=== PATIENT | female | born 1985 | race Hispanic/Latino ===

== ENCOUNTER 2021-01-20 20:14 | Emergency (ER) | payer OTHER ==
[~2021-01-20] VITALS: Ht 160 cm; Wt 104.3 kg
[2021-01-20 20:22] VITALS: BP 110/76
[2021-01-20] MEDS ORDERED: ALBUTEROL INHALER 90MCG/INH IH PRN (20:30)
[2021-01-20] MEDS ORDERED: CEFTRIAXONE 1G VIAL IM ONE (20:30)
[2021-01-20] MEDS ORDERED: ACETAMINOPHEN WITH CODEINE 1 TAB TAB PO ONE (20:30)
[2021-01-20] MEDS ORDERED: AZITHROMYCIN 250 MG TABLET PO ONE (20:30)
[2021-01-20] MEDS ORDERED: LIDOCAINE HCL-MPF 1% 2ML VIAL ONE (20:50)
[2021-01-20] MEDS ORDERED: D-ME1POW16 PO (21:40)
[2021-01-20] MEDS ORDERED: DOXY100C2 PO (21:40)
[2021-01-20] MEDS ORDERED: ALBUHFA IH (21:40)
[2021-01-20 22:10] VITALS: BP 129/76
== END 2021-01-20 22:11 | disposition home or self-care (01) ==
LOC: EDH 20:14
DX: J40 Bronchitis, not specified as acute or chronic (principal); Z20.822 Contact with and (suspected) exposure to COVID-19; Z79.899 Other long term (current) drug therapy
CPT/HCPCS: 71045; 87635; 87804 ×2; 87880; 96372; 99284; C9803; J0696; J3490

== ENCOUNTER 2022-07-25 15:55 | Emergency (ER) | payer OTHER ==
[~2022-07-25] VITALS: Ht 160 cm; Wt 106.1 kg
[~2022-07-25 15:55] MED LIST: ALBUHFA IH; D-ME1POW16 PO; DOXY100C5 PO
[2022-07-25] MEDS ORDERED: PHEN-846 PO (17:28)
[2022-07-25 17:45] VITALS: BP 125/72
== END 2022-07-25 17:45 | disposition home or self-care (01) ==
LOC: EDH 15:55
DX: N39.0 Urinary tract infection, site not specified (principal)
CPT/HCPCS: 99282

== ENCOUNTER 2023-01-09 10:57 | Emergency (ER) | payer BC, MEDICAID ==
[~2023-01-09] VITALS: Ht 160 cm; Wt 108.9 kg
[~2023-01-09 10:57] MED LIST changes: +PHEN-846 PO
[2023-01-09 11:30] LABS: BASOPHILS % (AUTO) 0.6 % (0.0-5.0); EOSINOPHILS % (AUTO) 1.9 % (0.0-8.0); HEMATOCRIT 39.5 % (36-48); LYMPHOCYTES % (AUTO) 32.2 % (21.0-51.0); MEAN CORPUSCULAR HEMOGLOBIN 29.8 pg (27.0-33.0); MEAN CORPUSCULAR HGB CONC 32.4 g/dL (32.0-36.0); MEAN CORPUSCULAR VOLUME 91.9 fL (79-99); MONOCYTES % (AUTO) 8.6 % (3.0-13.0); NEUTROPHILS % (AUTO) 56.4 % (40.0-77.0); PLATELET COUNT (AUTO) 297 K/uL (130-400); RED CELL DISTRIBUTION WIDTH 12.8 % (11.0-15.5); WHITE BLOOD COUNT (AUTO) 7.8 K/uL (4.8-10.8)
[2023-01-09 11:36] LABS: APPEARANCE,URINE CLEAR (CLEAR); BILIRUBIN,URINE NEGATIVE (NEGATIVE); COLOR,URINE COLORLESS (YELLOW); GLUCOSE, URINE (UA) NEGATIVE (NEGATIVE); KETONES,URINE NEGATIVE (NEGATIVE); LEUKOCYTE ESTERASE ,URINE NEGATIVE Leu/uL (NEGATIVE); NITRATE,URINE NEGATIVE (NEGATIVE); OCCULT BLOOD,URINE NEGATIVE (NEGATIVE); PROTEIN,URINE NEGATIVE (NEGATIVE); UROBILINOGEN,URINE 0.2 mg/dL (0.2-1.0)
[2023-01-09 11:39] LABS: HCG,QUALITATIVE URINE NEGATIVE (NEGATIVE)
[2023-01-09 11:40] LABS: POTASSIUM 4.4 mmol/L (3.5-5.1)
[2023-01-09 11:44] LABS: ALBUMIN 3.6 g/dL (3.5-5.0); TOTAL PROTEIN, SERUM 7.6 g/dL (6.0-8.3)
[2023-01-09] MEDS ORDERED: 0.9%NACL 1000ML 1,000 ML IV ONE (12:00)
[2023-01-09] MEDS ORDERED: PANTOPRAZOLE 40 MG/VIAL IVP ONE (12:00)
[2023-01-09] MEDS ORDERED: ONDANSETRON 4MG INJ IVP ONE (12:00)
[2023-01-09] MEDS ORDERED: MORPHINE 4 MG SYG IVP ONE (12:00)
[2023-01-09] MEDS ORDERED: IOHEXOL-350 75 ML VIAL IV ONE (13:18)
[2023-01-09 13:29] LABS: HCG,QUANTITATIVE 0 mIU/mL (0-5); LIPASE 141 U/L (114-286)
[2023-01-09] MEDS ORDERED: FAMO20TA8 PO (14:02)
[2023-01-09] MEDS ORDERED: IBUP-2070 PO (14:02)
[2023-01-09 14:21] VITALS: BP 121/71; PULSE 50; RESP 16
== END 2023-01-09 14:22 | disposition home or self-care (01) ==
LOC: EDH 10:57
DX: K29.70 Gastritis, unspecified, without bleeding (principal)
CPT/HCPCS: 99284; 74177; 96374; 96375; 96361; 80053; 84702; 83690 ×2; 85025; 81003; 81025; 36415; J7030; J2405; J2270; C9113; Q9967

== ENCOUNTER 2024-04-02 14:06 | Emergency (ER) | payer BC, MEDICAID ==
[~2024-04-02] VITALS: Ht 160 cm; Wt 113.4 kg
[~2024-04-02 14:06] MED LIST changes: +FAMO20TA8 PO; +IBUP-2070 PO
[2024-04-02 15:39] LABS: BASOPHILS # (AUTO) 0.04 K/uL (0.00-0.20); BASOPHILS % (AUTO) 0.4 % (0.0-5.0); EOSINOPHILS # (AUTO) 0.14 K/uL (0.00-0.70); EOSINOPHILS % (AUTO) 1.4 % (0.0-8.0); HEMATOCRIT 36.6 % (36-48); IMMATURE GRANULOCYTE ABSOLUTE 0.05 K/uL (0-1); LYMPHOCYTES # (AUTO) 3.2 K/uL (1.0-4.8); LYMPHOCYTES % (AUTO) 33.1 % (21.0-51.0); MEAN CORPUSCULAR HEMOGLOBIN 29.4 pg (27.0-33.0); MEAN CORPUSCULAR HGB CONC 32.5 g/dL (32.0-36.0); MEAN CORPUSCULAR VOLUME 90.4 fL (79-99); MONOCYTES # (AUTO) 0.7 K/uL (0.1-1.0); MONOCYTES % (AUTO) 7.4 % (3.0-13.0); NEUTROPHILS # (AUTO) 5.6 K/uL (1.8-7.7); NEUTROPHILS % (AUTO) 57.2 % (40.0-77.0); PLATELET COUNT (AUTO) 276 K/uL (130-400); RED BLOOD CELL COUNT(AUTO) 4.05 MIL/uL (4.00-5.50); RED CELL DISTRIBUTION WIDTH 12.5 % (11.0-15.5); WHITE BLOOD COUNT (AUTO) 9.8 K/uL (4.8-10.8)
[2024-04-02 15:59] LABS: CREATININE 0.9 mg/dL (0.5-1.0)
[2024-04-02 16:08] LABS: ALBUMIN 3.6 g/dL (3.5-5.0); BILIRUBIN,TOTAL 0.2 mg/dL (0.2-1.0); TOTAL PROTEIN, SERUM 7.8 g/dL (6.0-8.3)
[2024-04-02] MEDS: PANTOPrazole 40 MG/VIAL IVP ONE (18:24)
[2024-04-02] MEDS: LACTATED RINGERS 1000ML 1,000 ML IV ONE (18:24)
[2024-04-02] MEDS: ondanSETRON 4MG INJ IVP ONE (18:24)
[2024-04-02] MEDS ORDERED: PANT40TA55 PO (18:27)
[2024-04-02] MEDS ORDERED: ONDA-243 PO (18:27)
[2024-04-02] MEDS: DICYCLOMINE HCL 10 MG/5 ML ML PO ONE (20:22)
[2024-04-02] MEDS: LIDOCAINE HCL 2% VISCOUS 15 ML UDCUP PO ONE (20:22)
[2024-04-02] MEDS: MAG/ALUM/SIMETH 30 ML UDCUP PO ONE (20:23)
[2024-04-02 23:00] VITALS: BP 110/63; PULSE 70; RESP 18; TEMP 97.8; O2SAT 98
== END 2024-04-02 23:06 | disposition home or self-care (01) ==
LOC: EDH 14:06
DX: K27.9 Peptic ulcer, site unspecified, unspecified as acute or chronic, without hemorrhage or perforation (principal); E66.01 Morbid (severe) obesity due to excess calories; Z68.41 Body mass index [BMI] 40.0-44.9, adult
CPT/HCPCS: 99284; 96374; 71045; 96361; 96375; 82550; 84484; 80053; 83690; 85025; 36415; 93005; J7120; J2405; J2470

== ENCOUNTER 2024-08-16 19:58 | Emergency (ER) | payer SELFPAY ==
[~2024-08-16] VITALS: Ht 160 cm; Wt 110.2 kg
[~2024-08-16 19:58] MED LIST changes: -ALBUHFA IH; +CALC500T13 PO; -D-ME1POW16 PO; -DOXY100C5 PO; -FAMO20TA8 PO; -IBUP-2070 PO; -PHEN-846 PO
--- NOTE | 2024-08-16 20:00 | NUR ---
DELAY DUUE TO REGISTRATION PAPERWORK BEING EXPLAINED
--- NOTE | 2024-08-16 20:09 | NUR ---
UA CUP PROVIDED
--- NOTE | 2024-08-16 20:10 | NUR ---
[facility]INNER OR LOC
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
[2024-08-16] MEDS: ibuPROFEN 600 MG TABLET PO ONE (20:59)
[2024-08-16 21:02] VITALS: BP 124/75; PULSE 85; RESP 16; TEMP 97.8; O2SAT 99
== END 2024-08-16 21:04 | disposition home or self-care (01) ==
LOC: EEVIPCON 19:58 → EDH 19:58
DX: S30.1XXA Contusion of abdominal wall, initial encounter (principal); W18.39XA Other fall on same level, initial encounter; Y93.89 Activity, other specified; Y92.89 Other specified places as the place of occurrence of the external cause; Y99.8 Other external cause status
CPT/HCPCS: 99282